=== PATIENT | male | born 1970 | race Two or more races ===

== ENCOUNTER 2022-07-13 04:54 | Day surgery (SDC) | payer BC ==
[2022-07-12 19:58] VITALS: BMI 31.2
[2022-07-13] MEDS ORDERED: DEXAMETHASONE SOD PHOSPHATE 10 MG/1 ML VIAL ONE (10:03)
[2022-07-13] MEDS ORDERED: ROPIVACAINE HCL 0.5% 30ML VIAL ONE (10:03)
[2022-07-13] MEDS ORDERED: MIDAZOLAM HCL 2 MG/2 ML SINGLE DOSE VIAL ONE ×2 (10:15→10:38)
[2022-07-13] MEDS ORDERED: ceFAZolin SODIUM 1 GM VIAL IVPB ONE (10:40)
[2022-07-13] MEDS ORDERED: PROPOFOL 20 ML ONE ×2 (10:42→11:28)
[2022-07-13] MEDS ORDERED: KETAMINE HCL 200 MG/20 ML VIAL ONE (10:51)
[2022-07-13] MEDS ORDERED: ONDANSETRON 4 MG/2 ML VIAL IVPUSH PRN (12:21)
[2022-07-13] MEDS ORDERED: oxyCODONE HCL 5 MG TABLET PO PRN (12:21)
[2022-07-13] MEDS ORDERED: HYDROmorphone HCl 2 MG/ML VIAL IVPUSH ONE (12:22)
[2022-07-13] MEDS ORDERED: HYDROmorphone HCL CARPU-JECT 2 MG/1 ML DISP.SYRIN IVPUSH ONE (12:22)
[2022-07-13] MEDS ORDERED: LABETALOL HCL 5 MG/1 ML (100MG/20 ML VIAL) IVPUSH ONE (12:22)
[2022-07-13] MEDS ORDERED: ACETAMINOPHEN 1000 MG/100 ML BAG IVPB ONE (12:27)
[2022-07-13] MEDS ORDERED: LACTATED RINGERS SOLUTION 1,000 ML IV SCH (12:30)
[2022-07-13] MEDS ORDERED: HYDROmorphone HCl 2 MG/ML VIAL ONE (12:37)
[2022-07-13 14:21] VITALS: RESP 20
[2022-07-13 15:59] VITALS: BP 131/87; PULSE 100; TEMP 97
== END 2022-07-13 16:01 | disposition home or self-care (01) ==
LOC: JASU-SURG 04:54
PROVIDERS: ATTEND Orthopaedic Surgery
PROC: 0RNJ4ZZ Release Right Shoulder Joint, Percutaneous Endoscopic Approach (ICD-10-PCS; 2022-07-13)
PROC: 0LU14JZ Supplement Right Shoulder Tendon with Synthetic Substitute, Percutaneous Endoscopic Approach (ICD-10-PCS; principal; 2022-07-13 09:30)
DX: M75.101 Unspecified rotator cuff tear or rupture of right shoulder, not specified as traumatic (principal)
CPT/HCPCS: 94760; C1713; J1100